=== PATIENT | male | born 1955 | race Caucasian/White ===

== ENCOUNTER 2019-02-14 12:22 | Emergency (ER) | payer SELFPAY ==
[~2019-02-14] VITALS: Ht 162.6 cm; Wt 95.0 kg
[2019-02-14 13:18] VITALS: BP 123/76
[2019-02-14] MEDS ORDERED: TETANUS, DIPHTHERIA, PERTUSSIS VAC/PF 0.5ML (>7YR OLD) IM ONE (15:15)
[2019-02-14] MEDS ORDERED: LIDOCAINE HCL/EPINEPHRINE 1%-EPI 1:100,000 20 ML VIAL MC ONE (15:15)
[2019-02-14] MEDS ORDERED: LIDOCAINE 1%/EPI 1:100,000 10 ML VIAL IJ ONE (15:15)
[2019-02-14] MEDS ORDERED: ACETAMINOPHEN 325MG TABLET PO STA (15:25)
== END 2019-02-14 16:14 | disposition home or self-care (01) ==
LOC: ER 13:07
DX: S61.210A Laceration without foreign body of right index finger without damage to nail, initial encounter (principal); E78.00 Pure hypercholesterolemia, unspecified; I10 Essential (primary) hypertension; W26.0XXA Contact with knife, initial encounter; Y93.89 Activity, other specified; Y92.89 Other specified places as the place of occurrence of the external cause; Y99.8 Other external cause status; Z95.5 Presence of coronary angioplasty implant and graft
CPT/HCPCS: 90471; 90715; 99283; J3490

== ENCOUNTER 2019-11-22 10:41 | Emergency (ER) | payer OTHER, SELFPAY ==
[~2019-11-22] VITALS: Ht 170.2 cm; Wt 86.0 kg
[2019-11-22 11:41] VITALS: BP 184/94
[2019-11-22 12:46] LABS: BASOPHILS % 0.6 % (0.0-2.0); EOSINOPHILS % 5.3 % (0.0-5.0); HEMATOCRIT. 45.6 % (42.0-52.0); HEMOGLOBIN. 15.8 g/dL (14.0-18.0); LYMPHOCYTES % 21.2 % (20.0-50.0); MEAN CORPUSCULAR HEMOGLOBIN 31.9 pg (28.0-32.0); MEAN CORPUSCULAR VOLUME 91.9 fL (80.0-94.0); MEAN PLATELET VOLUME 8.1 fl (7.4-10.4); MONOCYTES % 6.3 % (2.0-8.0); NEUTROPHILS % 66.6 % (40.0-76.0); PLATELET 192 x1000/uL (130-400); RED BLOOD CELL COUNT 4.96 mill/uL (4.7-6.1); RED CELL DISTRIBUTION WIDTH 14.8 % (11.6-14.6)
[2019-11-22 12:47] LABS: CHLORIDE 108 mEq/L (98-107)
[2019-11-22 12:59] LABS: PROTHROMBIN TIME 10.2 sec (9.6-11.0)
== END 2019-11-22 13:45 | disposition home or self-care (01) ==
LOC: ER 10:44
DX: K64.4 Residual hemorrhoidal skin tags (principal); K60.2 Anal fissure, unspecified; I10 Essential (primary) hypertension; E78.00 Pure hypercholesterolemia, unspecified; Z86.19 Personal history of other infectious and parasitic diseases; Z98.890 Other specified postprocedural states
CPT/HCPCS: 36415; 80053; 85025; 86850; 86900; 99283